=== PATIENT | female | born 1960 | race Two or more races ===

== ENCOUNTER 2017-12-04 10:54 | Emergency (ER) | payer OTHER ==
[~2017-12-04] VITALS: Ht 157.5 cm; Wt 97.1 kg
[2017-12-04 11:03] VITALS: BP 173/95; Ht 157.5 cm; Wt 97.1 kg
== END 2017-12-04 12:31 | disposition home or self-care (01) ==
LOC: ED 10:54
DX: T18.198A Other foreign object in esophagus causing other injury, initial encounter (principal); I10 Essential (primary) hypertension; E11.9 Type 2 diabetes mellitus without complications; Y92.89 Other specified places as the place of occurrence of the external cause; Y93.89 Activity, other specified; Y99.8 Other external cause status